=== PATIENT | male | born 1990 | race American Indian/Alaskan Native ===

== ENCOUNTER 2020-04-10 20:54 | Inpatient (IN) | payer OTHER ==
--- NOTE | 2020-04-10 21:13 | Event Note ---
ED Screening Note Date of service: 04/10/20 Time: 21:12 ED Screening Note: Patient presents with complaints of cough, shortness of breath, chest pain, fatigue, and body aches for the past week Patient states shortness of breath is suddenly worsening today Denies any previous medical history Heart rate noted to be in the 140s This initial assessment/diagnostic orders/clinical plan/treatment(s) is/are subject to change based on patients health status, clinical progression and re- assessment by fellow clinical providers in the ED. Further treatment and workup at subsequent clinical providers discretion. Patient/guardian urged not to elope from the ED as their condition may be serious if not clinically assessed and managed. Initial orders include: Labs Chest x-ray EKG
[2020-04-10 21:32] LABS: Basophils % (Auto) 0.2 % (0.0-1.8); Eosinophils % (Auto) 0.1 % (0.0-4.3); Hematocrit 45.2 % (35.5-45.6); Hemoglobin 15.6 gm/dl (11.8-15.2); Lymphocytes # (Auto) 1.5 K/mm3 (1.2-5.4); Lymphocytes % (Auto) 21.5 % (13.4-35.0); Mean Corpuscular HGB Conc 35 % (32-34); Mean Corpuscular Volume 86 fl (84-94); Monocytes # (Auto) 0.9 K/mm3 (0.0-0.8); Platelet Count 230 K/mm3 (140-440); Red Blood Count 5.24 M/mm3 (3.65-5.03); Red Cell Distribution Width 13.2 % (13.2-15.2)
[2020-04-10 21:56] LABS: Alanine Aminotransferase 57 units/L (7-56); Albumin 4.3 g/dL (3.9-5); BUN/Creatinine Ratio 9; Blood Urea Nitrogen 9 mg/dL (9-20); Calcium 9.2 mg/dL (8.4-10.2); Hemolysis Index 25
--- NOTE | 2020-04-10 22:02 | Emergency Department Report ---
ED Shortness of Breath HPI - General Chief Complaint: Dyspnea/Respdistress Stated Complaint: SHORTNESS OF BREATH Time Seen by Provider: 04/10/20 21:09 Source: patient Mode of arrival: Ambulatory Limitations: No Limitations - History of Present Illness Initial Comments: 30-year-old male, no past medical history, presents to ED with complaint of shortness of breath. Patient states she tested positive for COVID-19 4 days ago. She states her symptoms began 9 days ago. Symptoms consist of fever, body aches, diarrhea, cough, chest pain with cough. Patient states shortness of breath began today. MD Complaint: shortness of breath -: days(s) (1) Severity: moderate Quality: aching Consistency: constant Improves With: nothing Worsens With: exertion Associated Symptoms: chest pain (with cough), fever, cough Treatments Prior to Arrival: none - Related Data Home Oxygen Therapy: No Home Medications Medication Instructions Recorded Confirmed Last Taken No Known Home Medications [No 04/11/20 04/11/20 Unknown Reported Home Medications] Allergies Allergy/AdvReac Type Severity Reaction Status Date / Time No Known Allergies Allergy Verified 04/10/20 23:30 ED Review of Systems ROS: Stated complaint: SHORTNESS OF BREATH Other details as noted in HPI Comment: All other systems reviewed and negative Constitutional: fever Respiratory: cough, shortness of breath Cardiovascular: chest pain (with cough) Gastrointestinal: diarrhea Musculoskeletal: myalgia ED Past Medical Hx - Past Medical History Previous Medical History?: No - Surgical History Past Surgical History?: No - Social History Smoking Status: Never Smoker Substance Use Type: None - Medications Home Medications: Home Medications Medication Instructions Recorded Confirmed Last Taken Type No Known Home Medications [No 04/11/20 04/11/20 Unknown History Reported Home Medications] ED Physical Exam - General Limitations: No Limitations General appearance: alert, in no apparent distress - Head Head exam: Present: atraumatic, normocephalic - Eye Eye exam: Present: normal appearance, EOMI - ENT ENT exam: Present: mucous membranes moist - Neck Neck exam: Present: normal inspection - Respiratory Respiratory exam: Present: normal lung sounds bilaterally, chest wall tenderness - Cardiovascular Cardiovascular Exam: Present: normal rhythm, tachycardia - GI/Abdominal GI/Abdominal exam: Present: soft. Absent: distended, tenderness - Extremities Exam Extremities exam: Present: normal inspection - Neurological Exam Neurological exam: Present: alert, oriented X3 - Psychiatric Psychiatric exam: Present: normal affect, normal mood - Skin Skin exam: Present: warm, dry, intact, normal color ED Course Vital Signs 04/10/20 04/10/20 04/10/20 21:07 22:18 22:31 Temperature 98.6 F Pulse Rate 129 H Respiratory 22 Rate Blood Pressure 132/93 O2 Sat by Pulse 96 95 100 Oximetry 04/10/20 04/10/20 04/10/20 22:43 22:45 23:01 Temperature Pulse Rate Respiratory Rate Blood Pressure O2 Sat by Pulse 88 90 98 Oximetry 04/10/20 04/10/20 04/10/20 23:15 23:30 23:46 Temperature Pulse Rate Respiratory Rate Blood Pressure O2 Sat by Pulse 99 99 99 Oximetry 04/11/20 00:00 Temperature Pulse Rate Respiratory Rate Blood Pressure 119/83 O2 Sat by Pulse 97 Oximetry ED Medical Decision Making - Lab Data Result diagrams: 04/10/20 21:15 04/10/20 21:15 - EKG Data -: EKG Interpreted by [facility] EKG shows normal: sinus rhythm, axis, intervals, QRS complexes, ST-T waves Rate: tachycardia (rate 119) - EKG Data Interpretation: no acute changes - Radiology Data Radiology results: report reviewed, image reviewed - Medical Decision Making 30 yo M, COVID + presents to ED w/ SOB. CXR shows infiltrates. O2 sats decrease w/ ambulation down to 88% RA. Blood cultures drawn. Rocephin and azithromycin administered. COVID markers sent. Pt will be admitted by hospitalist, Dr Gilman, for further management. - Differential Diagnosis pneumonia Critical care attestation.: If time is entered above; I have spent that time in minutes in the direct care of this critically ill patient, excluding procedure time. ED Disposition Clinical Impression: Pneumonia due to COVID-19 virus, Hypoxia Disposition: OP ADMIT IP TO THIS HOSP Is pt being admited?: Yes Condition: Stable Time of Disposition: 22:55
--- NOTE | 2020-04-10 22:27 | XRay Report ---
CHEST 2 VIEWS INDICATION / CLINICAL INFORMATION: shortness of breath, cough. COMPARISON: None available. FINDINGS: SUPPORT DEVICES: None. HEART / MEDIASTINUM: No significant abnormality. LUNGS / PLEURA: There are hazy bilateral mid and lower lung opacities. There is no pleural effusion. No pneumothorax. ADDITIONAL FINDINGS: No significant additional findings. IMPRESSION: 1. Hazy bilateral mid and lower lung opacities concerning for developing infectious process. Signer Name: Alfie Colvin MD Signed: 04/10/2020 10:22 PM Workstation Name: [id number]
[2020-04-10] MEDS ORDERED: cefTRIAXone/NS 1 GM/50 ML 1 GM/50 ML BAG IV ONE (22:41)
[2020-04-10] MEDS ORDERED: AZITHROMYCIN 250 MG TAB PO ONE (22:41)
[2020-04-10] MEDS ORDERED: ONDANSETRON 4 MG/2 ML INJ IV PRN (23:20)
[2020-04-11] MEDS: methylPREDNISolone Sod Succinate 40 MG/1 ML INJ IV SCH ×4 (00:06→17:40)
[2020-04-11] MEDS ORDERED: ACETAMINOPHEN 325 MG TAB ONE (00:39)
[2020-04-11] MEDS: ACETAMINOPHEN 325 MG TAB PO PRN (00:56)
[2020-04-11] MEDS: HEPARIN 5,000 UNIT/1 ML VIAL SUB-Q SCH ×3 (01:22→22:13)
[2020-04-11 04:36] LABS: C-Reactive Protein 5.5 mg/dL (0.00-1.30)
--- NOTE | 2020-04-11 06:02 | History and Physical Report ---
History of Present Illness Date of examination: 04/10/20 Date of admission: 04/10/20 22:56 Chief complaint: Shortness of breath History of present illness: History of presenting illness, patient is a 30-year-old female who has been having symptoms of shortness of breath going on for about 9 days and was associated with body ache, diarrhea, cough and fever. Patient said the symptoms became progressively worse and she had a positive COVID-19 test 4 days prior to presentation, there was no history of chest pain, no history of nausea vomiting and no history of headache or dizziness Past History Past Surgical History: No surgical history Social history: no significant social history Family history: no significant family history Medications and Allergies Allergies Allergy/AdvReac Type Severity Reaction Status Date / Time No Known Allergies Allergy Verified 04/10/20 23:30 Home Medications Medication Instructions Recorded Confirmed Last Taken Type No Known Home Medications [No 04/11/20 04/11/20 Unknown History Reported Home Medications] Active Meds: Active Medications Acetaminophen (Tylenol) 650 mg PO Q4H PRN PRN Reason: Fever >101 Last Admin: 04/11/20 00:56 Dose: 650 mg Documented by: Guaifenesin (Robitussin) 200 mg PO Q4H PRN PRN Reason: Cough Heparin Sodium (Porcine) (Heparin) 5,000 unit SUB-Q Q12HR ANGELA Last Admin: 04/11/20 01:22 Dose: 5,000 unit Documented by: Azithromycin 500 mg/ Sodium (Chloride) 250 mls @ 250 mls/hr IV Q24HR ANGELA; Protocol Ceftriaxone Sodium (Rocephin/Ns 2 Gm/100 Ml) 2 gm in 100 mls @ 200 mls/hr IV Q24HR ANGELA; Protocol Methylprednisolone Sodium Succinate (Solu-Medrol) 40 mg IV Q6HR ANGELA Last Admin: 04/11/20 00:06 Dose: 40 mg Documented by: Ondansetron HCl (Zofran) 4 mg IV Q8H PRN PRN Reason: Nausea And Vomiting Review of Systems Constitutional: fever, weakness, malaise, no weight loss, no weight gain, no chills, no sweats, no anorexia, no fatigue, no lethargy Eyes: bilateral: other (NO BILATERAL EYE SYMPTOM) Ears, nose, mouth and throat: no ear pain, no ear discharge, no nose pain, no nasal congestion, no nasal discharge, no sinus pressure, no hoarseness, no sore throat, no swelling in mouth, no swelling in throat, no headache, no vertigo Cardiovascular: shortness of breath, no chest pain, no syncope, no lightheadedness Respiratory: cough, shortness of breath, no cough with sputum, no excessive sputum, no hemoptysis, no dyspnea on exertion, no wheezing, no pleurisy, no pain Gastrointestinal: diarrhea, no abdominal pain, no nausea, no vomiting, no constipation, no melena, no hematochezia, no loss of appetite, no heartburn, no jaundice Genitourinary Male: no hematuria, no flank pain, no nocturia, no incontinence, no testicular pain, no testicular lump Rectal: no pain, no itching Musculoskeletal: no neck stiffness, no neck pain, no low back pain, no shooting leg pain, no morning stiffness, no muscle cramps, no myalgias Integumentary: no rash, no pruritis, no redness, no sores, no wounds, no jaundic e, no darkening of skin, no depigmentation, no dryness Neurological: weakness, no paralysis, no numbness, no tingling, no seizures, no syncope, no headaches, no convulsions Psychiatric: no anxiety, no memory loss, no insomnia, no depression Endocrine: no cold intolerance, no heat intolerance, no polydipsia, no polyuria, no nocturia, no excessive sweating, no thyroid mass, no palpatations, no high blood sugars Hematologic/Lymphatic: no easy bruising, no easy bleeding, no lymphadenopathy Allergic/Immunologic: no urticaria, no persistent infections Exam - Constitutional Vitals: Temp Pulse Resp BP Pulse Ox 98.5 F 74 16 128/85 98 04/11/20 05:00 04/11/20 05:00 04/11/20 05:00 04/11/20 05:00 04/11/20 05:00 General appearance: Present: mild distress - EENT Eyes: Present: PERRL, EOM intact ENT: hearing intact, clear oral mucosa - Neck Neck: Present: supple, normal ROM - Respiratory Respiratory effort: normal - Cardiovascular Rhythm: regular Heart Sounds: Present: S1 & S2. Absent: gallop, systolic murmur, diastolic murmur - Extremities Extremities: no ischemia, No edema Extremity abnormal: edema, erythema Peripheral Pulses: within normal limits - Abdominal General gastrointestinal: Present: soft, non-tender, non-distended. Absent: tender, distended, rigid, hepatomegaly, splenomegaly Male genitourinary: Present: deferred - Rectal Rectal Exam: deferred - Integumentary Integumentary: Present: clear, warm, dry. Absent: jaundice, clammy - Musculoskeletal Musculoskeletal: strength equal bilaterally - Psychiatric Psychiatric: appropriate mood/affect HEART Score - HEART Score Troponin: Troponin T < 0.010 ng/mL (0.00-0.029) 04/10/20 21:15 Results - Labs CBC & Chem 7: 04/10/20 21:15 04/10/20 23:31 Labs: Laboratory Last Values WBC 6.7 K/mm3 (4.5-11.0) 04/10/20 21:15 RBC 5.24 M/mm3 (3.65-5.03) H 04/10/20 21:15 Hgb 15.6 gm/dl (11.8-15.2) H 04/10/20 21:15 Hct 45.2 % (35.5-45.6) 04/10/20 21:15 MCV 86 fl (84-94) 04/10/20 21:15 MCH 30 pg (28-32) 04/10/20 21:15 MCHC 35 % (32-34) H 04/10/20 21:15 RDW 13.2 % (13.2-15.2) 04/10/20 21:15 Plt Count 230 K/mm3 (140-440) 04/10/20 21:15 Lymph % (Auto) 21.5 % (13.4-35.0) 04/10/20 21:15 [place] % (Auto) 14.0 % (0.0-7.3) H 04/10/20 21:15 Eos % (Auto) 0.1 % (0.0-4.3) 04/10/20 21:15 Baso % (Auto) 0.2 % (0.0-1.8) 04/10/20 21:15 Lymph # 1.5 K/mm3 (1.2-5.4) 04/10/20 21:15 [place] # 0.9 K/mm3 (0.0-0.8) H 04/10/20 21:15 Eos # 0.0 K/mm3 (0.0-0.4) 04/10/20 21:15 Baso # 0.0 K/mm3 (0.0-0.1) 04/10/20 21:15 Seg Neutrophils % 64.2 % (40.0-70.0) 04/10/20 21:15 Seg Neutrophils # 4.3 K/mm3 (1.8-7.7) 04/10/20 21:15 D-Dimer 251.47 ng/mlDDU (0-234) H 04/10/20 23:31 Sodium 132 mmol/L (137-145) L 04/10/20 21:15 Potassium 4.2 mmol/L (3.6-5.0) 04/10/20 21:15 Chloride 93.6 mmol/L (98-107) L 04/10/20 21:15 Carbon Dioxide 21 mmol/L (22-30) L 04/10/20 21:15 Anion Gap 22 mmol/L 04/10/20 21:15 BUN 9 mg/dL (9-20) 04/10/20 21:15 Creatinine 1.0 mg/dL (0.8-1.5) 04/10/20 21:15 Estimated GFR > 60 ml/min 04/10/20 21:15 BUN/Creatinine Ratio 9 % 04/10/20 21:15 Glucose 82 mg/dL (75-100) 04/10/20 23:31 Lactic Acid 1.10 mmol/L (0.7-2.0) 04/10/20 23:31 Calcium 9.2 mg/dL (8.4-10.2) 04/10/20 21:15 Ferritin 410.6 ng/mL (13.0-400.0) H 04/10/20 23:31 Total Bilirubin 0.50 mg/dL (0.1-1.2) 04/10/20 21:15 AST 65 units/L (5-40) H 04/10/20 21:15 ALT 57 units/L (7-56) H 04/10/20 21:15 Alkaline Phosphatase 85 units/L (35-129) 04/10/20 21:15 Lactate Dehydrogenase 381 units/L (91-180) H 04/10/20 23:31 Troponin T < 0.010 ng/mL (0.00-0.029) 04/10/20 21:15 C-Reactive Protein 5.50 mg/dL (0.00-1.30) H 04/10/20 23:31 Total Protein 8.5 g/dL (6.3-8.2) H 04/10/20 21:15 Albumin 4.3 g/dL (3.9-5) 04/10/20 21:15 Albumin/Globulin Ratio 1.0 % 04/10/20 21:15 Microbiology: Microbiology 04/11/20 Unknown Peripheral/Venous Blood Culture - Preliminary Culture in Progress 04/11/20 Unknown Peripheral/Venous Blood Culture - Preliminary Culture in Progress Red/IV: Voiding Method Toilet IV Catheter Type [Left Hand] Peripheral IV Assessment and Plan - Patient Problems (1) Hypoxia Current Visit: Yes Status: Acute Plan to address problem: 1. Oxygen by nasal cannula (2) Pneumonia due to COVID-19 virus Current Visit: Yes Status: Acute Plan to address problem: 1. I.V Zithromax antibiotic 2. I.V Rocephine antibiotic 3. I.V Solumedrol Q6h 4. Tablet Tylenol for fever and headache 5. Robitussin for Cough 6. Contact and Drop[let Isolation 7 Infectious Disease consult
[2020-04-11] MEDS ORDERED: AZITHROMYCIN 500 MG in SODIUM CHLORIDE 0.9% 250ML 250 ML IV SCH (10:00)
[2020-04-11] MEDS ORDERED: cefTRIAXone/NS 2 GM/100 ML 2 GM/100 ML BAG IV SCH (10:00)
--- NOTE | 2020-04-11 14:00 | Progress Note ---
Assessment and Plan Assessment and plan: --COVID-19 positive test; Contact and respiratory isolation Follow inflammatory markers Ferritin 410 D-dimers 251.4 CRP 5.50 LDH 381 ID consult Oxygen evaluation resting room air, ambulatory room air --Bilateral lung infiltrates/bilateral pneumonia Empiric antibiotics, oxygen titrate O2 sats more than 90% Supportive care --Mild hypo-natremia; Gentle hydration with normal saline Monitor electrolytes --Transaminitis; mild Probably secondary to alcohol intake Patient has history of alcohol use , monitor --DVT prophylaxis; Lovenox Follow ID recommendations Monitor patient and adjust management as needed Plan of care reviewed with the patient and his nurse History Interval history: Patient seen and examined at the bedside Admitted as PUI to rule out COVID Isolation precautions and PPE protocols followed Patient's COVID-19 test came back positive this morning Patient complains of generalized weakness Vital signs reviewed Hospitalist Physical - Constitutional Vitals: Temp Pulse Resp BP Pulse Ox 98.4 F 97 H 18 128/84 99 04/11/20 11:29 04/11/20 11:55 04/11/20 11:55 04/11/20 11:29 04/11/20 11:55 General appearance: Present: mild distress, well-nourished, obese - EENT Eyes: Present: PERRL, EOM intact - Neck Neck: Present: supple, normal ROM - Respiratory Respiratory effort: normal Respiratory: bilateral: diminished, rhonchi, negative: rales, wheezing - Cardiovascular Rhythm: regular Heart Sounds: Present: S1 & S2 - Extremities Extremities: no ischemia, No edema - Abdominal General gastrointestinal: soft, non-tender, non-distended, normal bowel sounds - Integumentary Integumentary: Present: clear, warm - Psychiatric Psychiatric: appropriate mood/affect, cooperative - Neurologic Neurologic: moves all extremities HEART Score - HEART Score Troponin: Troponin T < 0.010 ng/mL (0.00-0.029) 04/10/20 21:15 Results - Labs CBC & Chem 7: 04/10/20 21:15 04/10/20 23:31 Labs: Laboratory Last Values WBC 6.7 K/mm3 (4.5-11.0) 04/10/20 21:15 RBC 5.24 M/mm3 (3.65-5.03) H 04/10/20 21:15 Hgb 15.6 gm/dl (11.8-15.2) H 04/10/20 21:15 Hct 45.2 % (35.5-45.6) 04/10/20 21:15 MCV 86 fl (84-94) 04/10/20 21:15 MCH 30 pg (28-32) 04/10/20 21:15 MCHC 35 % (32-34) H 04/10/20 21:15 RDW 13.2 % (13.2-15.2) 04/10/20 21:15 Plt Count 230 K/mm3 (140-440) 04/10/20 21:15 Lymph % (Auto) 21.5 % (13.4-35.0) 04/10/20 21:15 [place] % (Auto) 14.0 % (0.0-7.3) H 04/10/20 21:15 Eos % (Auto) 0.1 % (0.0-4.3) 04/10/20 21:15 Baso % (Auto) 0.2 % (0.0-1.8) 04/10/20 21:15 Lymph # 1.5 K/mm3 (1.2-5.4) 04/10/20 21:15 [place] # 0.9 K/mm3 (0.0-0.8) H 04/10/20 21:15 Eos # 0.0 K/mm3 (0.0-0.4) 04/10/20 21:15 Baso # 0.0 K/mm3 (0.0-0.1) 04/10/20 21:15 Seg Neutrophils % 64.2 % (40.0-70.0) 04/10/20 21:15 Seg Neutrophils # 4.3 K/mm3 (1.8-7.7) 04/10/20 21:15 D-Dimer 251.47 ng/mlDDU (0-234) H 04/10/20 23:31 Sodium 132 mmol/L (137-145) L 04/10/20 21:15 Potassium 4.2 mmol/L (3.6-5.0) 04/10/20 21:15 Chloride 93.6 mmol/L (98-107) L 04/10/20 21:15 Carbon Dioxide 21 mmol/L (22-30) L 07/03/20 21:15 Anion Gap 22 mmol/L 04/10/20 21:15 BUN 9 mg/dL (9-20) 04/10/20 21:15 Creatinine 1.0 mg/dL (0.8-1.5) 04/10/20 21:15 Estimated GFR > 60 ml/min 04/10/20 21:15 BUN/Creatinine Ratio 9 % 04/10/20 21:15 Glucose 82 mg/dL (75-100) 04/10/20 23:31 Lactic Acid 1.10 mmol/L (0.7-2.0) 04/10/20 23:31 Calcium 9.2 mg/dL (8.4-10.2) 04/10/20 21:15 Ferritin 410.6 ng/mL (13.0-400.0) H 04/10/20 23:31 Total Bilirubin 0.50 mg/dL (0.1-1.2) 04/10/20 21:15 AST 65 units/L (5-40) H 04/10/20 21:15 ALT 57 units/L (7-56) H 04/10/20 21:15 Alkaline Phosphatase 85 units/L (35-129) 04/10/20 21:15 Lactate Dehydrogenase 381 units/L (91-180) H 04/10/20 23:31 Troponin T < 0.010 ng/mL (0.00-0.029) 04/10/20 21:15 C-Reactive Protein 5.50 mg/dL (0.00-1.30) H 04/10/20 23:31 Total Protein 8.5 g/dL (6.3-8.2) H 04/10/20 21:15 Albumin 4.3 g/dL (3.9-5) 04/10/20 21:15 Albumin/Globulin Ratio 1.0 % 04/10/20 21:15 Procalcitonin 0.05 ng/mL (<0.15) 04/10/20 23:31 Coronavirus (PCR) Positive (Negative) A 04/11/20 Unknown Microbiology: Microbiology 04/11/20 Unknown Peripheral/Venous Blood Culture - Preliminary Culture in Progress 04/11/20 Unknown Peripheral/Venous Blood Culture - Preliminary Culture in Progress Red/IV: Voiding Method Toilet IV Catheter Type [Left Hand] Peripheral IV Active Medications - Current Medications Current Medications: Generic Name Dose Route Start Last Admin Trade Name Freq PRN Reason Stop Dose Admin Acetaminophen 650 mg 04/10/20 23:23 04/11/20 00:56 Tylenol PO 650 mg Q4H PRN Administration Fever >101 Azithromycin 500 mg 04/12/20 10:00 Zithromax PO QDAY ANGELA Guaifenesin 200 mg 04/10/20 23:27 Robitussin PO Q4H PRN Cough Heparin Sodium (Porcine) 5,000 unit 04/10/20 23:30 04/11/20 09:03 Heparin SUB-Q 5,000 unit Q12HR ANGELA Administration Ceftriaxone Sodium 2 gm in 100 mls @ 200 mls/hr 04/11/20 10:00 04/11/20 09:03 Rocephin/Ns 2 Gm/100 Ml IV 200 mls/hr Q24HR ANGELA Administration Protocol Methylprednisolone Sodium Succinate 40 mg 04/10/20 23:45 04/11/20 11:15 Solu-Medrol IV 40 mg Q6HR ANGELA Administration Ondansetron HCl 4 mg 04/10/20 23:20 Zofran IV Q8H PRN Nausea And Vomiting Nutrition/Malnutrition Assess - Dietary Evaluation Nutrition/Malnutrition Findings: Nutrition Notes Start: 04/11/20 10:26 Freq: Status: Active Protocol: Document 04/11/20 10:26 LM (Rec: 04/11/20 10:28 LM -[email or web address]) Nutrition Notes Need for Assessment generated from: lining baster,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 Unable to reach pt by phone 2x. Nutrition Intervention Follow-Up By: 04/13/20 Additional Comments F/U for assessment
[2020-04-11] MEDS: guaiFENesin 100 MG/5 ML ORAL LIQD PO PRN ×2 (14:46→22:13)
--- NOTE | 2020-04-11 18:31 | Consultation ---
History of Present Illness - Reason for Consult Consult date: 04/11/20 - History of Present Illness 30-year-old female past medical history obesity admitted with complaints of shortness of breath. She notes the symptoms began approximately 9 days prior to admission, more associated with generalized myalgias, diarrhea, fever. Her symptoms became progressively worse, and she sought out a outpatient COVID-19 test 4 days prior to admission, was positive. Otherwise no acute symptoms Afebrile since admission with a normal white count. Currently receiving ceftriaxone and azithromycin. Blood cultures currently pending. COVID-19 testing positive, procalcitonin normal. Imaging personally reviewed: Chest x-ray: Bilateral opacities Review of Systems: Bold if positive, otherwise negative General: fevers, chills, rigors HEENT: visual disturbance, diplopia, eye pain Respiratory: cough, sputum, hemoptysis, shortness of breath Cardiovascular: chest pain, syncope Gastrointestinal: nausea, vomiting, diarrhea, abdominal pain Genitourinary: dysuria, hematuria, flank pain Musculoskeletal: neck pain, back pain, joint pain, edema Neurologic: headaches, seizures Hematologic: easy bruising or bleeding Endocrine: night sweats, acute weight loss Skin: rash, jaundice, redness Psychiatric: suicidal, homicidal ideation Past History Past Medical History: No medical history Past Surgical History: No surgical history Social history: no significant social history Family history: no significant family history Medications and Allergies Allergies Allergy/AdvReac Type Severity Reaction Status Date / Time No Known Allergies Allergy Verified 04/10/20 23:30 Home Medications Medication Instructions Recorded Confirmed Last Taken Type No Known Home Medications [No 04/11/20 04/11/20 Unknown History Reported Home Medications] Active Meds: Active Medications Acetaminophen (Tylenol) 650 mg PO Q4H PRN PRN Reason: Fever >101 Last Admin: 04/11/20 00:56 Dose: 650 mg Documented by: Azithromycin (Zithromax) 500 mg PO QDAY ANGELA Guaifenesin (Robitussin) 200 mg PO Q4H PRN PRN Reason: Cough Last Admin: 04/11/20 14:46 Dose: 200 mg Documented by: Heparin Sodium (Porcine) (Heparin) 5,000 unit SUB-Q Q12HR ANGELA Last Admin: 04/11/20 09:03 Dose: 5,000 unit Documented by: Ceftriaxone Sodium (Rocephin/Ns 2 Gm/100 Ml) 2 gm in 100 mls @ 200 mls/hr IV Q24HR ANGELA; Protocol Last Admin: 04/11/20 09:03 Dose: 200 mls/hr Documented by: Methylprednisolone Sodium Succinate (Solu-Medrol) 40 mg IV Q6HR [facility] Last Admin: 04/11/20 17:40 Dose: 40 mg Documented by: Ondansetron HCl (Zofran) 4 mg IV Q8H PRN PRN Reason: Nausea And Vomiting Physical Examination - Physical Exam Narrative exam: Physical Exam: Constitutional: Alert, cooperative. No acute distress Head, Ears, Nose: Normocephalic, atraumatic. External ears, nose normal Eyes: Conjunctivae/corneas clear. No icterus. No ptosis. Neck: Supple, no meningeal signs Oral: dentition fair, no thrush Cardiovascular: S1, S2 normal. Respiratory: Good air entry, clear to auscultation bilaterally GI: Soft, non-tender; bowel sounds normal. No peritoneal signs. Musculoskeletal: No pedal edema, no cyanosis. Skin: No rash or abscess Hem/Lymphatic: No palpable cervical or supraclavicular nodes. No lymphangitis Psych: Mood ok. Affect normal Neurological: Awake, alert, oriented. No gross abnormality - Constitutional Vitals: Vital Signs Temp Pulse Resp BP Pulse Ox 98.1 F 88 20 138/86 97 04/11/20 18:01 04/11/20 18:01 04/11/20 18:01 04/11/20 18:01 04/11/20 18:01 Temperature -Last 24 Hours Temperature 98.1 F Temperature 98.4 F Temperature 98.5 F Temperature 98.5 F Temperature 100.1 F Temperature 100.1 F Temperature 98.6 F Results - Labs CBC & Chem 7: 04/10/20 21:15 04/10/20 23:31 Labs: Abnormal lab results 04/10/20 04/10/20 04/10/20 Range/Units 21:15 21:15 23:31 RBC 5.24 H (3.65-5.03) M/mm3 Hgb 15.6 H (11.8-15.2) gm/dl MCHC 35 H (32-34) % Wol[place] % (Auto) 14.0 H (0.0-7.3) % [place] # 0.9 H (0.0-0.8) K/mm3 D-Dimer 251.47 H (0-234) ng/mlDDU Sodium 132 L (137-145) mmol/L Chloride 93.6 L (98-107) mmol/L Carbon Dioxide 21 L (22-30) mmol/L Ferritin (13.0-400.0) ng/mL AST 65 H (5-40) units/L ALT 57 H (7-56) units/L Lactate Dehydrogenase (91-180) units/L C-Reactive Protein (0.00-1.30) mg/dL Total Protein 8.5 H (6.3-8.2) g/dL Coronavirus (PCR) (Negative) 04/10/20 04/10/20 04/11/20 Range/Units 23:31 23:31 Unknown RBC (3.65-5.03) M/mm3 Hgb (11.8-15.2) gm/dl MCHC (32-34) % [place] % (Auto) (0.0-7.3) % [place] # (0.0-0.8) K/mm3 D-Dimer (0-234) ng/mlDDU Sodium (137-145) mmol/L Chloride (98-107) mmol/L Carbon Dioxide (22-30) mmol/L Ferritin 410.6 H (13.0-400.0) ng/mL AST (5-40) units/L ALT (7-56) units/L Lactate Dehydrogenase 381 H (91-180) units/L C-Reactive Protein 5.50 H (0.00-1.30) mg/dL Total Protein (6.3-8.2) g/dL Coronavirus (PCR) Positive A (Negative) Assessment and Plan Cultures: Blood culture 04/11/2020 pending A/P: 30-year-old male past medical history obesity admitted with COVID-19 pneumonia #Acute hypoxic respiratory failure: Requiring 2 L nasal cannula, secondary to COVID-19 #COVID-19 pneumonia: Ferritin slightly elevated, continue to monitor inflammatory markers at this time. Requiring minimal oxygen support, continue steroids per primary. If ferritin enoxaparin continue to increase, will consider Actemra at that time. Procalcitonin is normal, as such we will stop antibiotics. Recs: -If ferritin if >500 ng/mL will consider Tocilizumab 8 mg/kg IV x 1 -Stop ceftriaxone azithromycin -Obtain daily inflammatory markers - ferritin, Ddimer, CRP, LDH -Consider prophylactic anticoagulation -Continue steroids Dr. Ramirez taking over Monday Thank you for the consult, we will continue to follow. Charity Mack MD [facility] ([facility]) M: [phone] O: [phone] F: [phone]
[2020-04-12] MEDS: methylPREDNISolone Sod Succinate 40 MG/1 ML INJ IV SCH ×4 (00:20→17:27)
[2020-04-12] MEDS: HEPARIN 5,000 UNIT/1 ML VIAL SUB-Q SCH ×2 (09:26→22:23)
[2020-04-12] MEDS ORDERED: AZITHROMYCIN 250 MG TAB PO SCH (10:00)
--- NOTE | 2020-04-12 11:54 | Progress Note ---
Assessment and Plan Assessment and plan: --COVID-19 positive; Contact and respiratory isolation Follow inflammatory markers Ferritin 410, D-dimers 251.4 CRP 5.50, LDH 381 ID consult noted and appreciated Oxygen evaluation resting room air, ambulatory room air --Bilateral lung infiltrates/bilateral pneumonia Empiric antibiotics, oxygen titrate O2 sats more than 90% Follow cultures --Mild hypo-natremia; Gentle hydration with normal saline Monitor electrolytes --Transaminitis; mild Probably secondary to alcohol intake Patient has history of alcohol use , monitor --DVT prophylaxis; Lovenox Follow ID recommendations Monitor patient and adjust management as needed Plan of care reviewed with the patient and his nurse History Interval history: I have seen and examined the patient at bedside this morning Medical records reports overnight events reviewed Patient admitted with PUI ; COVID test positive On contact and droplet isolation Isolation precautions. PPE protocols observed Vital signs noted Hospitalist Physical - Constitutional Vitals: Temp Pulse Resp BP Pulse Ox 97.0 F L 72 18 115/80 97 04/12/20 05:17 04/12/20 05:17 04/12/20 10:00 04/12/20 05:17 04/12/20 08:41 General appearance: Present: mild distress, well-nourished, obese - EENT Eyes: Present: PERRL, EOM intact - Neck Neck: Present: supple, normal ROM - Respiratory Respiratory effort: normal Respiratory: bilateral: diminished, negative: rales, rhonchi, wheezing - Cardiovascular Rhythm: regular Heart Sounds: Present: S1 & S2 - Extremities Extremities: no ischemia, No edema - Abdominal General gastrointestinal: soft, non-tender, non-distended, normal bowel sounds - Integumentary Integumentary: Present: clear, warm - Psychiatric Psychiatric: appropriate mood/affect, cooperative - Neurologic Neurologic: CNII-XII intact, moves all extremities HEART Score - HEART Score Troponin: Troponin T < 0.010 ng/mL (0.00-0.029) 04/10/20 21:15 Results - Labs CBC & Chem 7: 04/10/20 21:15 04/10/20 23:31 Labs: Laboratory Last Values WBC 6.7 K/mm3 (4.5-11.0) 04/10/20 21:15 RBC 5.24 M/mm3 (3.65-5.03) H 04/10/20 21:15 Hgb 15.6 gm/dl (11.8-15.2) H 04/10/20 21:15 Hct 45.2 % (35.5-45.6) 04/10/20 21:15 MCV 86 fl (84-94) 04/10/20 21:15 MCH 30 pg (28-32) 04/10/20 21:15 MCHC 35 % (32-34) H 04/10/20 21:15 RDW 13.2 % (13.2-15.2) 04/10/20 21:15 Plt Count 230 K/mm3 (140-440) 04/10/20 21:15 Lymph % (Auto) 21.5 % (13.4-35.0) 04/10/20 21:15 [place] % (Auto) 14.0 % (0.0-7.3) H 04/10/20 21:15 Eos % (Auto) 0.1 % (0.0-4.3) 04/10/20 21:15 Baso % (Auto) 0.2 % (0.0-1.8) 04/10/20 21:15 Lymph # 1.5 K/mm3 (1.2-5.4) 04/10/20 21:15 [place] # 0.9 K/mm3 (0.0-0.8) H 04/10/20 21:15 Eos # 0.0 K/mm3 (0.0-0.4) 04/10/20 21:15 Baso # 0.0 K/mm3 (0.0-0.1) 04/10/20 21:15 Seg Neutrophils % 64.2 % (40.0-70.0) 04/10/20 21:15 Seg Neutrophils # 4.3 K/mm3 (1.8-7.7) 04/10/20 21:15 D-Dimer 251.47 ng/mlDDU (0-234) H 04/10/20 23:31 Sodium 132 mmol/L (137-145) L 04/10/20 21:15 Potassium 4.2 mmol/L (3.6-5.0) 04/10/20 21:15 Chloride 93.6 mmol/L (98-107) L 04/10/20 21:15 Carbon Dioxide 21 mmol/L (22-30) L 04/10/20 21:15 Anion Gap 22 mmol/L 04/10/20 21:15 BUN 9 mg/dL (9-20) 04/10/20 21:15 Creatinine 1.0 mg/dL (0.8-1.5) 04/10/20 21:15 Estimated GFR > 60 ml/min 04/10/20 21:15 BUN/Creatinine Ratio 9 % 04/10/20 21:15 Glucose 82 mg/dL (75-100) 04/10/20 23:31 Lactic Acid 1.10 mmol/L (0.7-2.0) 04/10/20 23:31 Calcium 9.2 mg/dL (8.4-10.2) 04/10/20 21:15 Ferritin 410.6 ng/mL (13.0-400.0) H 04/10/20 23:31 Total Bilirubin 0.50 mg/dL (0.1-1.2) 04/10/20 21:15 AST 65 units/L (5-40) H 04/10/20 21:15 ALT 57 units/L (7-56) H 04/10/20 21:15 Alkaline Phosphatase 85 units/L (35-129) 04/10/20 21:15 Lactate Dehydrogenase 381 units/L (91-180) H 04/10/20 23:31 Troponin T < 0.010 ng/mL (0.00-0.029) 04/10/20 21:15 C-Reactive Protein 5.50 mg/dL (0.00-1.30) H 04/10/20 23:31 Total Protein 8.5 g/dL (6.3-8.2) H 04/10/20 21:15 Albumin 4.3 g/dL (3.9-5) 04/10/20 21:15 Albumin/Globulin Ratio 1.0 % 04/10/20 21:15 Procalcitonin 0.05 ng/mL (<0.15) 04/10/20 23:31 Coronavirus (PCR) Positive (Negative) A 04/11/20 Unknown Microbiology: Microbiology 04/11/20 Unknown Peripheral/Venous Blood Culture - Preliminary NO GROWTH AFTER 24 HOURS 04/11/20 Unknown Peripheral/Venous Blood Culture - Preliminary NO GROWTH AFTER 24 HOURS Red/IV: Voiding Method Toilet IV Catheter Type [Left Hand] Peripheral IV Active Medications - Current Medications Current Medications: Generic Name Dose Route Start Last Admin Trade Name Freq PRN Reason Stop Dose Admin Acetaminophen 650 mg 04/10/20 23:23 04/11/20 00:56 Tylenol PO 650 mg Q4H PRN Administration Fever >101 Guaifenesin 200 mg 04/10/20 23:27 04/11/20 22:13 Robitussin PO 200 mg Q4H PRN Administration Cough Heparin Sodium (Porcine) 5,000 unit 04/10/20 23:30 04/12/20 09:26 Heparin SUB-Q 5,000 unit Q12HR ANGELA Administration Methylprednisolone Sodium Succinate 40 mg 04/10/20 23:45 04/12/20 05:50 Solu-Medrol IV 40 mg Q6HR ANGELA Administration Ondansetron HCl 4 mg 04/10/20 23:20 Zofran IV Q8H PRN Nausea And Vomiting Nutrition/Malnutrition Assess - Dietary Evaluation Nutrition/Malnutrition Findings: Nutrition Notes Start: 04/11/20 10:26 Freq: Status: Active Protocol: Document 04/11/20 10:26 LM (Rec: 04/11/20 10:28 LM [email or web address]) Nutrition Notes 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 Unable to reach pt by phone 2x. Nutrition Intervention Follow-Up By: 04/13/20 Additional Comments F/U for assessment
[2020-04-12] MEDS: guaiFENesin 100 MG/5 ML ORAL LIQD PO PRN ×2 (13:55→22:22)
[2020-04-12] MEDS: ACETAMINOPHEN 325 MG TAB PO PRN (22:22)
[2020-04-13] MEDS: methylPREDNISolone Sod Succinate 40 MG/1 ML INJ IV SCH ×5 (00:10→23:16)
[2020-04-13] MEDS: HEPARIN 5,000 UNIT/1 ML VIAL SUB-Q SCH ×2 (10:04→21:40)
--- NOTE | 2020-04-13 13:24 | Progress Note ---
Assessment and Plan Cultures: Blood culture 04/11/2020 no growth A/P: 30-year-old male past medical history obesity admitted with COVID-19 pneumonia #Acute hypoxic respiratory failure: Requiring 2 L nasal cannula, secondary to COVID-19 #COVID-19 pneumonia: Ferritin slightly elevated, continue to monitor inflammator y markers at this time. Requiring minimal oxygen support, continue steroids per primary. Recs: -prophylactic anticoagulation -Continue steroids, dexamethasone 6 mg daily x 10 days -home oxygen eval prior to discharge Fuentes Ramirez MD, FACP [facility] ([facility]) C: [phone] O: [phone] F: [phone] Subjective Date of service: 04/13/20 Interval history: No fever, remains on minimal oxygen, saturating 98%. Objective - Exam Narrative Exam: Physical Exam (reviewed in chart due to PPE conservation) Constitutional: limited due to PPE conservation strategy Head, Ears, Nose: limited due to PPE conservation strategy Eyes: limited due to PPE conservation strategy Neck: limited due to PPE conservation strategy Oral: limited due to PPE conservation strategy Cardiovascular: limited due to PPE conservation strategy Respiratory: limited due to PPE conservation strategy GI: limited due to PPE conservation strategy Musculoskeletal: limited due to PPE conservation strategy Skin: limited due to PPE conservation strategy Hem/Lymphatic: limited due to PPE conservation strategy Psych: limited due to PPE conservation strategy Neurological: limited due to PPE conservation strategy - Constitutional Vitals: Vital Signs Temp Pulse Resp BP Pulse Ox 97.5 F L 62 18 115/79 98 04/13/20 04:57 04/13/20 04:57 04/13/20 10:00 04/13/20 04:57 04/13/20 04:57 Temperature -Last 24 Hours Temperature 97.5 F Temperature 98.3 F Temperature 98.3 F - Labs CBC & Chem 7: 04/10/20 21:15 04/10/20 23:31
[2020-04-13] MEDS: guaiFENesin 100 MG/5 ML ORAL LIQD PO PRN ×2 (13:41→20:26)
--- NOTE | 2020-04-13 14:25 | Progress Note ---
Assessment and Plan Assessment and plan: --COVID-19 positive; Contact and respiratory isolation Follow inflammatory markers Ferritin 410, D-dimers 251.4 CRP 5.50, LDH 381 ID consult noted and appreciated Oxygen evaluation resting room air 98%, ambulatory room air 96% No indication for home oxygen --Bilateral lung infiltrates/bilateral pneumonia Empiric antibiotics, oxygen titrate O2 sats more than 90% Follow cultures --Mild hypo-natremia; Gentle hydration with normal saline Monitor electrolytes --Transaminitis; mild Probably secondary to alcohol intake Patient has history of alcohol use , monitor --DVT prophylaxis; Lovenox Follow ID recommendations Monitor patient and adjust management as needed Plan of care reviewed with the patient and his nurse Possible discharge home tomorrow if stable History Interval history: Patient seen and examined in his room this morning Patient's chart and medications reviewed Patient feels slightly better sometimes complains of dizziness Afebrile, Alert awake oriented x3 Vital signs reviewed Hospitalist Physical - Constitutional Vitals: Temp Pulse Resp BP Pulse Ox 98.5 F 92 H 19 122/75 96 04/13/20 12:28 04/13/20 12:28 04/13/20 12:28 04/13/20 12:28 04/13/20 12:28 General appearance: Present: no acute distress, well-nourished, obese - EENT Eyes: Present: PERRL, EOM intact - Neck Neck: Present: supple, normal ROM - Respiratory Respiratory effort: normal Respiratory: bilateral: diminished, rhonchi, negative: rales, wheezing - Cardiovascular Rhythm: regular Heart Sounds: Present: S1 & S2 - Extremities Extremities: no ischemia, No edema - Abdominal General gastrointestinal: soft, non-tender, non-distended, normal bowel sounds - Integumentary Integumentary: Present: clear, warm - Psychiatric Psychiatric: appropriate mood/affect, cooperative - Neurologic Neurologic: CNII-XII intact, moves all extremities HEART Score - HEART Score Troponin: Troponin T < 0.010 ng/mL (0.00-0.029) 04/10/20 21:15 Results - Labs CBC & Chem 7: 04/10/20 21:15 04/10/20 23:31 Labs: Laboratory Last Values WBC 6.7 K/mm3 (4.5-11.0) 04/10/20 21:15 RBC 5.24 M/mm3 (3.65-5.03) H 04/10/20 21:15 Hgb 15.6 gm/dl (11.8-15.2) H 04/10/20 21:15 Hct 45.2 % (35.5-45.6) 04/10/20 21:15 MCV 86 fl (84-94) 04/10/20 21:15 MCH 30 pg (28-32) 04/10/20 21:15 MCHC 35 % (32-34) H 04/10/20 21:15 RDW 13.2 % (13.2-15.2) 04/10/20 21:15 Plt Count 230 K/mm3 (140-440) 04/10/20 21:15 Lymph % (Auto) 21.5 % (13.4-35.0) 04/10/20 21:15 [place] % (Auto) 14.0 % (0.0-7.3) H 04/10/20 21:15 Eos % (Auto) 0.1 % (0.0-4.3) 04/10/20 21:15 Baso % (Auto) 0.2 % (0.0-1.8) 04/10/20 21:15 Lymph # 1.5 K/mm3 (1.2-5.4) 04/10/20 21:15 [place] # 0.9 K/mm3 (0.0-0.8) H 04/10/20 21:15 Eos # 0.0 K/mm3 (0.0-0.4) 04/10/20 21:15 Baso # 0.0 K/mm3 (0.0-0.1) 04/10/20 21:15 Seg Neutrophils % 64.2 % (40.0-70.0) 04/10/20 21:15 Seg Neutrophils # 4.3 K/mm3 (1.8-7.7) 04/10/20 21:15 D-Dimer 251.47 ng/mlDDU (0-234) H 04/10/20 23:31 Sodium 132 mmol/L (137-145) L 04/10/20 21:15 Potassium 4.2 mmol/L (3.6-5.0) 04/10/20 21:15 Chloride 93.6 mmol/L (98-107) L 04/10/20 21:15 Carbon Dioxide 21 mmol/L (22-30) L 04/10/20 21:15 Anion Gap 22 mmol/L 04/10/20 21:15 BUN 9 mg/dL (9-20) 04/10/20 21:15 Creatinine 1.0 mg/dL (0.8-1.5) 04/10/20 21:15 Estimated GFR > 60 ml/min 04/10/20 21:15 BUN/Creatinine Ratio 9 % 04/10/20 21:15 Glucose 82 mg/dL (75-100) 04/10/20 23:31 Lactic Acid 1.10 mmol/L (0.7-2.0) 04/10/20 23:31 Calcium 9.2 mg/dL (8.4-10.2) 04/10/20 21:15 Ferritin 410.6 ng/mL (13.0-400.0) H 04/10/20 23:31 Total Bilirubin 0.50 mg/dL (0.1-1.2) 04/10/20 21:15 AST 65 units/L (5-40) H 04/10/20 21:15 ALT 57 units/L (7-56) H 04/10/20 21:15 Alkaline Phosphatase 85 units/L (35-129) 04/10/20 21:15 Lactate Dehydrogenase 381 units/L (91-180) H 04/10/20 23:31 Troponin T < 0.010 ng/mL (0.00-0.029) 04/10/20 21:15 C-Reactive Protein 5.50 mg/dL (0.00-1.30) H 04/10/20 23:31 Total Protein 8.5 g/dL (6.3-8.2) H 04/10/20 21:15 Albumin 4.3 g/dL (3.9-5) 04/10/20 21:15 Albumin/Globulin Ratio 1.0 % 04/10/20 21:15 Procalcitonin 0.05 ng/mL (<0.15) 04/10/20 23:31 Coronavirus (PCR) Positive (Negative) A 04/11/20 Unknown Microbiology: Microbiology 04/11/20 Unknown Peripheral/Venous Blood Culture - Preliminary NO GROWTH AFTER 48 HOURS 04/11/20 Unknown Peripheral/Venous Blood Culture - Preliminary NO GROWTH AFTER 48 HOURS Red/IV: Voiding Method Toilet IV Catheter Type [Left Hand] Peripheral IV Active Medications - Current Medications Current Medications: Generic Name Dose Route Start Last Admin Trade Name Cliffordq PRN Reason Stop Dose Admin Acetaminophen 650 mg 04/10/20 23:23 04/12/20 22:22 Tylenol PO 650 mg Q4H PRN Administration Fever >101 Guaifenesin 200 mg 04/10/20 23:27 04/13/20 13:41 Robitussin PO 200 mg Q4H PRN Administration Cough Heparin Sodium (Porcine) 5,000 unit 04/10/20 23:30 04/13/20 10:04 Heparin SUB-Q 5,000 unit Q12HR ANGELA Administration Methylprednisolone Sodium Succinate 40 mg 04/10/20 23:45 04/13/20 13:36 Solu-Medrol IV 40 mg Q6HR ANGELA Administration Ondansetron HCl 4 mg 04/10/20 23:20 Zofran IV Q8H PRN Nausea And Vomiting Nutrition/Malnutrition Assess - Dietary Evaluation Nutrition/Malnutrition Findings: Nutrition Notes Start: 04/11/20 10:26 Freq: Status: Active Protocol: Document 04/13/20 09:53 LP (Rec: 04/13/20 09:55 LP [id number]) Nutrition Notes Initial or Follow up Brief Note Subjective/Other Information Pt states eating well [employer] and now. Denies wt changes and has no nutrition concerns. Nutrition Intervention Revisit per MD consult or patient Sign Off request:
[2020-04-14] MEDS: methylPREDNISolone Sod Succinate 40 MG/1 ML INJ IV SCH ×2 (05:23→13:40)
[2020-04-14] MEDS: guaiFENesin 100 MG/5 ML ORAL LIQD PO PRN (09:50)
[2020-04-14] MEDS: HEPARIN 5,000 UNIT/1 ML VIAL SUB-Q SCH (09:50)
--- NOTE | 2020-04-14 14:43 | Progress Note ---
Assessment and Plan Cultures: Blood culture 04/11/2020 no growth A/P: 30-year-old male past medical history obesity admitted with COVID-19 pneumonia #Acute hypoxic respiratory failure: Requiring 2 L nasal cannula, secondary to COVID-19 #COVID-19 pneumonia: Ferritin slightly elevated, continue to monitor inflammator y markers at this time. Requiring minimal oxygen support, continue steroids per primary. Recs: -prophylactic anticoagulation -Continue steroids, dexamethasone 6 mg daily x 10 days -home oxygen eval prior to discharge Fuentes Ramirez MD, FACP [facility] ([facility] C: [phone] O: [phone] F: [phone] Subjective Date of service: 04/14/20 Interval history: No fever, remains on minimal oxygen v/s room air. Objective - Exam Narrative Exam: Physical Exam (reviewed in chart due to PPE conservation) Constitutional: limited due to PPE conservation strategy Head, Ears, Nose: limited due to PPE conservation strategy Eyes: limited due to PPE conservation strategy Neck: limited due to PPE conservation strategy Oral: limited due to PPE conservation strategy Cardiovascular: limited due to PPE conservation strategy Respiratory: limited due to PPE conservation strategy GI: limited due to PPE conservation strategy Musculoskeletal: limited due to PPE conservation strategy Skin: limited due to PPE conservation strategy Hem/Lymphatic: limited due to PPE conservation strategy Psych: limited due to PPE conservation strategy Neurological: limited due to PPE conservation strategy - Constitutional Vitals: Vital Signs Temp Pulse Resp BP Pulse Ox 97.7 F 105 H 20 120/78 97 04/14/20 05:54 04/14/20 10:00 04/14/20 10:00 04/14/20 05:54 04/14/20 10:00 Temperature -Last 24 Hours Temperature 97.7 F Temperature 98.0 F - Labs CBC & Chem 7: 04/10/20 21:15 04/10/20 23:31
--- NOTE | 2020-04-14 15:31 | Discharge Summary ---
Providers - Providers Date of Admission: 04/10/20 22:56 Date of discharge: 04/14/20 Attending physician: CHAPITO DOWD 04/10/20 22:42 Consult to Physician [CONS] Stat Comment: Consulting Provider: KRZYSZTOF WILLIAMSON Physician Instructions: Reason For Exam: COVID pneumonia Primary care physician: DO[facility] DENTAL [facility] Hospitalization Condition: Stable Disposition: DC-01 TO HOME OR SELFCARE Time spent for discharge: 35 min Core Measure Documentation - Palliative Care Palliative Care/ Comfort Measures: Not Applicable - Core Measures Any of the following diagnoses?: none Exam - Constitutional Vitals: Temp Pulse Resp BP Pulse Ox 97.7 F 105 H 20 120/78 97 04/14/20 05:54 04/14/20 10:00 04/14/20 10:00 04/14/20 05:54 04/14/20 10:00 General appearance: Present: no acute distress, well-nourished - EENT Eyes: Present: PERRL, EOM intact - Respiratory Respiratory effort: normal, labored Respiratory: bilateral: diminished, negative: rales, rhonchi, wheezing - Cardiovascular Rhythm: regular Heart Sounds: Present: S1 & S2 - Extremities Extremities: no ischemia, No edema - Abdominal General gastrointestinal: Present: soft, non-tender, non-distended, normal bowel sounds - Integumentary Integumentary: Present: clear, warm - Musculoskeletal Musculoskeletal: strength equal bilaterally - Psychiatric Psychiatric: appropriate mood/affect, cooperative - Neurologic Neurologic: moves all extremities Plan Activity: advance as tolerated Diet: regular Additional Instructions: Self quarantine, handwashing, masks, social distancing protocols to be observed. Please read and follow the COVID protocols and pr ecautions given to you at the time of discharge. If you have any questions or concerns contact PMD or health department Follow up with: PRIMARY CARE,MD [Primary Care Provider] - 7 Days Prescriptions: guaiFENesin [Robitussin] 200 mg PO Q4H PRN 10 Days #1 bottle PRN Reason: Cough
[2020-04-14 17:13] VITALS: BP 122/79
[2020-04-15] MEDS ORDERED: DEXAMETHASONE 2 MG TAB PO SCH (10:00)
== END 2020-04-14 17:00 | disposition home or self-care (01) | DRG 177 ==
LOC: ED 20:54 → 3A 22:56
PROVIDERS: ADMIT Internal Medicine; ATTEND Internal Medicine
DX: U07.1 COVID-19 (principal); J12.89 Other viral pneumonia; J96.01 Acute respiratory failure with hypoxia; E87.1 Hypo-osmolality and hyponatremia; R74.0 Nonspecific elevation of levels of transaminase and lactic acid dehydrogenase [LDH]; E66.9 Obesity, unspecified; Z68.30 Body mass index [BMI] 30.0-30.9, adult
CPT/HCPCS: 36415; 71046; 80053; 82140; 82728; 82947; 83615; 84145; 84484; 85025; 85379; 86140; 87040; 93005; 94760; G0378; J0456; J0696; J1644; J2920; J7050; U0003-CS

== ENCOUNTER 2020-10-11 21:40 | Emergency (ER) | payer SELFPAY ==
[2020-10-11] MEDS ORDERED: SODIUM CHLORIDE 0.9% 500 ML 500 ML IV ONE (21:49)
[2020-10-11] MEDS ORDERED: ACETAMINOPHEN 500 MG TAB PO STA (21:49)
[2020-10-11 22:01] LABS: Hematocrit 43.6 % (35.5-45.6); Hemoglobin 14.8 gm/dl (11.8-15.2); Mean Corpuscular HGB Conc 34 % (32-34); Mean Corpuscular Volume 86 fl (84-94); Platelet Count 261 K/mm3 (140-440); Red Cell Distribution Width 13.9 % (13.2-15.2)
[2020-10-11 22:11] LABS: INR 1.11 (0.87-1.13)
[2020-10-11 22:19] LABS: Alanine Aminotransferase 22 units/L (7-56); Albumin 4.2 g/dL (3.9-5); BUN/Creatinine Ratio 12; Blood Urea Nitrogen 11 mg/dL (9-20); Calcium 9.6 mg/dL (8.4-10.2); Hemolysis Index 7
[2020-10-11] MEDS ORDERED: cefTRIAXone/NS 1 GM/50 ML 1 GM/50 ML BAG IV ONE (22:20)
[2020-10-11] MEDS ORDERED: LIDOCAINE VISCOUS 2% 15 ML ORAL LIQD PO ONE (22:20)
[2020-10-11] MEDS ORDERED: dexAMETHasone 20 MG/5 ML VIAL IV ONE (22:20)
[2020-10-11] MEDS ORDERED: SODIUM CHLORIDE 0.9% 1000 ML 1,000 ML IV ONE ×2 (22:20)
--- NOTE | 2020-10-11 22:26 | Emergency Department Report ---
HPI - General Chief Complaint: Sore Throat Time Seen by Provider: 10/11/20 22:00 - HPI HPI: Room 40 The patient is a 30-year-old male present with a chief complaint of sore throat. Patient states last night he developed a fever to 101 F, chills, body aches and sore throat. Patient gives his pain a score 7/10. Patient missed an occasional cough but states is nonproductive. Patient denies rhinorrhea or nasal congestion. Patient states he has been taking Mucinex and NyQuil but has not helped. Patient gives his throat pain a score of 7/10. The patient drove himself to the emergency department and there are no visitors present ED Past Medical Hx - Past Medical History Previous Medical History?: Yes Hx Deep Vein Thrombosis: Yes (right leg) - Surgical History Past Surgical History?: No - Family History Family history: no significant - Social History Smoking Status: Never Smoker Substance Use Type: Alcohol (Occasional) - Medications Home Medications: Home Medications Medication Instructions Recorded Confirmed Last Taken Type guaiFENesin [Robitussin] 200 mg PO Q4H PRN 10 Days #1 bottle 04/14/20 Unknown Rx Amoxicillin/Potassium Clav 1 each PO BID #20 tablet 10/12/20 Unknown Rx [Augmentin 875-125 Tablet] HYDROcodone/APAP 5-325 [Kennedy 1 - 2 each PO Q6HR PRN #14 tablet 10/12/20 Unknown Rx 5/325] Ibuprofen [Motrin 800 MG tab] 800 mg PO Q8HR PRN #20 tablet 10/12/20 Unknown Rx ED Review of Systems ROS: Stated complaint: DIARRHEA/SORE THROAT/FEVER/HEADACHE Other details as noted in HPI Constitutional: fever Eyes: denies: eye pain ENT: throat pain Respiratory: cough Cardiovascular: denies: chest pain Endocrine: no symptoms reported Gastrointestinal: denies: vomiting Genitourinary: denies: dysuria Musculoskeletal: myalgia Neurological: headache Physical Exam - Physical Exam Vital Signs: Vital Signs 10/11/20 21:47 Temperature 102.5 F H Pulse Rate 117 H Respiratory 18 Rate Blood Pressure 134/85 O2 Sat by Pulse 94 Oximetry Physical Exam: GENERAL: The patient is well-developed well-nourished male lying on stretcher not appearing to be in acute distress. [] HEENT: Normocephalic. Atraumatic. Extraocular motions are intact. Patient has moist mucous membranes. Bilateral tonsillitis with exudate. Uvula midline NECK: Supple. No meningitic signs are noted. Trachea midline CHEST/LUNGS: Clear to auscultation. There is no respiratory distress noted. HEART/CARDIOVASCULAR: Regular. There is tachycardia. There is no gallop rub or murmur. ABDOMEN: Abdomen is soft, nontender. Patient has normal bowel sounds. There is no abdominal distention. SKIN: There is no rash. There is no edema. There is no diaphoresis. NEURO: The patient is awake, alert, and oriented. The patient is cooperative. The patient has no focal neurologic deficits. The patient has normal speech MUSCULOSKELETAL: There is no evidence of acute injury. ED Course Vital Signs 10/11/20 21:47 Temperature 102.5 F H Pulse Rate 117 H Respiratory 18 Rate Blood Pressure 134/85 O2 Sat by Pulse 94 Oximetry - Reevaluation(s) Reevaluation #1: 10/12/20 01:39 Heart rate 98 ED Medical Decision Making - Lab Data Result diagrams: 10/11/20 21:52 10/11/20 21:52 Laboratory Tests 10/11/20 10/11/20 10/11/20 21:52 21:52 21:52 WBC 13.5 H RBC 5.10 H Hgb 14.8 Hct 43.6 MCV 86 MCH 29 MCHC 34 RDW 13.9 Plt Count 261 [place] % (Auto) Simplex Printer Installer Add Manual Diff Complete Total Counted 100 Seg Neuts % (Manual) 71.0 H Lymphocytes % (Manual) 12.0 L Monocytes % (Manual) 17.0 H Nucleated RBC % Not Reportable Seg Neutrophils # Man 9.6 H Band Neutrophils # 0.0 Lymphocytes # (Manual) 1.6 Abs React Lymphs (Man) 0.0 Monocytes # (Manual) 2.3 H Eosinophils # (Manual) 0.0 Basophils # (Manual) 0.0 Metamyelocytes # 0.0 Myelocytes # 0.0 Promyelocytes # 0.0 Blast Cells # 0.0 WBC Morphology Not Reportable Hypersegmented Neuts Not Reportable Hyposegmented Neuts Not Reportable Hypogranular Neuts Not Reportable Smudge Cells Not Reportable Toxic Granulation Not Reportable Toxic Vacuolation Not Reportable Dohle Bodies Not Reportable Pelger-Huet Anomaly Not Reportable Ron Rods Not Reportable Platelet Estimate Not Reportable Clumped Platelets Not Reportable Plt Clumps, EDTA Not Reportable Large Platelets Not Reportable Giant Platelets Not Reportable Platelet Satelliting Not Reportable Plt Morphology Comment Not Reportable RBC Morphology Normal Dimorphic RBCs Not Reportable Polychromasia Not Reportable Hypochromasia Not Reportable Poikilocytosis Not Reportable Anisocytosis Not Reportable Microcytosis Not Reportable Macrocytosis Not Reportable Spherocytes Not Reportable Pappenheimer Bodies Not Reportable Sickle Cells Not Reportable Target Cells Not Reportable Tear Drop Cells Not Reportable Ovalocytes Not Reportable Helmet Cells Not Reportable [place]h-[place] Bodies Not Reportable Archie Rings Not Reportable Mehreen Cells Not Reportable Bite Cells Not Reportable Crenated Cell Not Reportable Elliptocytes Not Reportable Acanthocytes (Spur) Not Reportable Rouleaux Not Reportable Hemoglobin C Crystals Not Reportable Schistocytes Not Reportable Malaria parasites Not Reportable Fer Bodies Not Reportable Hem Pathologist Commnt No PT 14.1 INR 1.11 VBG pH Sodium 131 L Potassium 3.7 Chloride 95.9 L Carbon Dioxide 22 Anion Gap 17 BUN 11 Creatinine 0.9 Estimated GFR > 60 BUN/Creatinine Ratio 12 Glucose 100 Lactic Acid Calcium 9.6 Total Bilirubin 0.50 AST 28 ALT 22 Alkaline Phosphatase 92 Total Protein 8.5 H Albumin 4.2 Albumin/Globulin Ratio 1.0 10/11/20 10/11/20 21:52 21:52 WBC RBC Hgb Hct MCV MCH MCHC RDW Plt Count [place] % (Auto) Add Manual Diff Total Counted Seg Neuts % (Manual) Lymphocytes % (Manual) Monocytes % (Manual) Nucleated RBC % Seg Neutrophils # Man Band Neutrophils # Lymphocytes # (Manual) Abs React Lymphs (Man) Monocytes # (Manual) Eosinophils # (Manual) Basophils # (Manual) Metamyelocytes # Myelocytes # Promyelocytes # Blast Cells # WBC Morphology Hypersegmented Neuts Hyposegmented Neuts Hypogranular Neuts Smudge Cells Toxic Granulation Toxic Vacuolation Dohle Bodies Pelger-Huet Anomaly Ron Rods Platelet Estimate Clumped Platelets Plt Clumps, EDTA Large Platelets Giant Platelets Platelet Satelliting Plt Morphology Comment RBC Morphology Dimorphic RBCs Polychromasia Hypochromasia Poikilocytosis Anisocytosis Microcytosis Macrocytosis Spherocytes Pappenheimer Bodies Sickle Cells Target Cells Tear Drop Cells Ovalocytes Helmet Cells [place]h-[place] Bodies Archie Rings [place] Cells Bite Cells Crenated Cell Elliptocytes Acanthocytes (Spur) Rouleaux Hemoglobin C Crystals Schistocytes Malaria parasites Fer Bodies Hem Pathologist Commnt PT INR VBG pH 7.462 H Sodium Potassium Chloride Carbon Dioxide Anion Gap BUN Creatinine Estimated GFR BUN/Creatinine Ratio Glucose Lactic Acid 0.70 Calcium Total Bilirubin AST ALT Alkaline Phosphatase Total Protein Albumin Albumin/Globulin Ratio - EKG Data -: EKG Interpreted by Me EKG shows normal: sinus rhythm Rate: tachycardia (114 bpm) - EKG Data When compared to previous EKG there are: no significant change Interpretation: other (No ischemic changes seen) - Radiology Data Radiology results: image reviewed (Chest x-ray) interpreted by me: Chest x-ray-no focal infiltrates, no pneumothorax. No foreign body seen - Differential Diagnosis Tonsillitis, peritonsillar abscess Critical care attestation.: If time is entered above; I have spent that time in minutes in the direct care of this critically ill patient, excluding procedure time. ED Disposition Clinical Impression: Exudative tonsillitis, Acute sore throat, Fever Disposition: TO HOME OR SELFCARE Is pt being admited?: No Does the pt Need Aspirin: No Condition: Stable Instructions: Tonsillitis, [id number] Additional Instructions: Return to the emergency department should you develop worsening symptoms, inability to tolerate food or liquids, high fever or any other concerns Prescriptions: Amoxicillin/Potassium Clav [Augmentin 875-125 Tablet] 1 each PO BID #20 tablet Ibuprofen [Motrin 800 MG tab] 800 mg PO Q8HR PRN #20 tablet PRN Reason: Pain, Moderate (4-6) HYDROcodone/APAP 5-325 [Kennedy 5/325] 1 - 2 each PO Q6HR PRN #14 tablet PRN Reason: Pain Referrals: LLOYD NEWSOME MD [Staff Physician] - 3-5 Days (Dr. Newsome is an extrusion press supervisor (ear nose and throat doctor). Please follow-up with him for further evaluation) Time of Disposition: 01:43
--- NOTE | 2020-10-11 22:36 | XRay Report ---
XR chest 1V ap INDICATION / CLINICAL INFORMATION: possible Sepsis COMPARISON: 04/10/2020 FINDINGS: SUPPORT DEVICES: None. HEART / MEDIASTINUM: No significant abnormality. LUNGS / PLEURA: Lungs are clear. Costophrenic sulci are sharp. No pneumothorax. ADDITIONAL FINDINGS: No significant additional findings. IMPRESSION: 1. No acute findings. Signer Name: Micheal Mueller MD Signed: 10/11/2020 10:32 PM Workstation Name: [id number]
[2020-10-11 22:58] LABS: RBC Morphology Normal; Total Cells Counted 100
[2020-10-12] MEDS ORDERED: SODIUM CHLORIDE 0.9% 1000 ML 1,000 ML IV ONE ×2 (01:08)
[2020-10-12 01:52] VITALS: BP 126/79
== END 2020-10-12 02:02 | disposition home or self-care (01) ==
LOC: ED 21:40
DX: J02.9 Acute pharyngitis, unspecified (principal); R50.9 Fever, unspecified; Z86.718 Personal history of other venous thrombosis and embolism; Z79.1 Long term (current) use of non-steroidal anti-inflammatories (NSAID); Z79.2 Long term (current) use of antibiotics; Z79.899 Other long term (current) drug therapy
CPT/HCPCS: 36415; 71045; 80053; 82140; 82805; 85007; 85025; 85610; 87040; 93005; 96361; 96365; 96375; 99284; J0696; J1100; J7030